=== PATIENT | female | born 1950 | race Caucasian/White ===

== ENCOUNTER → 2017-03-16 | Day surgery (SDC) | payer OTHER ==
[~2017-03-16] VITALS: Ht 170.2 cm; Wt 106.1 kg
[~2017-03-16] MED LIST: LOSARTAN/HCTZ
--- NOTE | 2017-03-16 11:56 | Operative Report ---
Operative/Inv Procedure Report Surgery Date: 03/16/17 Name of Procedure: Laparoscopic incisional hernia repair Pre-Operative Diagnosis: Incisional hernia Post-Operative Diagnosis: Same Estimated Blood Loss: scant Surgeon/Early Childhood Aide Classroom: LUANA LORENZ,HOWARD Crain/HETAL Mcgee Anesthesia: general endotracheal tube Implants: 12 cm Parietex mesh Operative Indication: 66 old woman with a port site hernia related to prior laparoscopic procedure. She presents for elective repair Operative/Procedure Note Note: After consent patient was brought to the operative room and laid supine. Gen. anesthesia was obtained and her left arm tucked. She her abdomen was then prepped and draped. The skin and left upper quadrant was after local anesthesia and a transverse incision made sharply. Using a 12 mm optical trocar we gained access to the peritoneum visually. Pneumoperitoneum was achieved. No overt bowel injury was identified. 2, 5 mm ports were placed and left lower quadrant after local anesthesia was instilled and under direct vision the camera. The abdomen was explored. There were 3 fascial defects in the midline. One was large, approximately 2-3 cm in greatest dimension. There was a separate 1 cm fascial defect superior and a smaller umbilical defect inferiorly. We took down the preperitoneal fat circumferentially with cautery. Once the fascia was cleared we measured the dimensions of the hernia defects. Superiorly to inferiorly it measured 6 cm. I chose a 12 cm Parietex mesh to cover the defect. The mesh was anchored in 4 quadrants with 0 [place]-S[place] suture. It was then hydrated rolled up and placed in the peritoneal cavity. It was unraveled below the defect. The transfixion sutures then brought up percutaneously in a sequential fashion. The sutures then tied down after the mesh was laying flat. The mesh was then anchored to the anterior abdominal wall in a double crown fashion using the absorbable tackers. Once were happy the placement mesh we allowed the gas to esape. The ports were delivered and fascia and the left upper quadrant closed with 0 Vicryl suture. Skin incisions closed with 4-0 Vicryl. Steri-Strips and sterile dressing applied. Sponge and needle counts are correct CC: STORM LORENZ,SUNSHINE Brock
== END ==
LOC: STS 02:05
DX: K43.2 Incisional hernia without obstruction or gangrene (principal); I10 Essential (primary) hypertension; E66.9 Obesity, unspecified; Z68.35 Body mass index [BMI] 35.0-35.9, adult
CPT/HCPCS: C1781; J0131; J0690; J2250; J2405